=== PATIENT | male | born 1950 | race Caucasian/White ===

== ENCOUNTER 2020-04-19 01:22 | Emergency (ER) | payer MEDICARE, SELFPAY ==
[2020-04-19 02:33] LABS: #Eosinphils 0.7 thou/uL (0.0-0.7); #Lymphocytes 1.6 thou/uL (1.20-3.40); #Monocytes 0.6 thou/uL (0.11-0.59); #Neutrophils 9.3 thou/uL (1.40-6.50); %Basophils 0.4 % (0.0-1.0); %Eosinophils 5.6 % (0.0-10.0); %Lymphocytes 12.7 % (21.0-51.0); %Monocytes 5.2 % (0.0-10.0); %Neutrophils 76.1 % (42.0-75.0); Hemoglobin 12.8 g/dL (14.0-18.0); Mean Corpuscular HGB CONC 31.6 g/dL (32.0-36.0); Mean Corpuscular Hemoglobin 26.2 pg (27.0-31.0); Mean Corpuscular Volume 83.1 fL (78.0-98.0); Mean Platelet Volume 8.3 fL (7.4-10.4); Platelet Count 162 thou/uL (130-400); RBC Distribution Width 12.6 % (11.5-14.5); Red Blood Cell (RBC) Count 4.86 mill/uL (4.70-6.10); White Blood Cell (WBC) Count 12.2 thou/uL (4.8-10.8)
[2020-04-19 02:45] LABS: Anion Gap 14 mmol/L (10-20); BUN (Urea Nitrogen) 22 mg/dL (8.4-25.7); Calc. Creatinine Clearance 0 mL/min (70-130); Calcium 9.1 mg/dL (7.8-10.44); Carbon Dioxide 30 mmol/L (23-31); Chloride 103 mmol/L (98-107); Estimated GFR-MDRD Greater than 90; Glucose 90 mg/dL (80-115); Potassium 4.7 mmol/L (3.5-5.1); Sodium 142 mmol/L (136-145)
[2020-04-19] MEDS ORDERED: Morphine 4 MG/ML VIAL ONE (04:12)
[2020-04-19] MEDS ORDERED: Morphine 2 MG/ML SYRINGE ONE (04:20)
--- NOTE | 2020-04-19 08:01 | CT ---
PRELIMINARY REPORT/[facility]/EMERGENCY AFTER HOURS PROCEDURE Receipt of this report by the clinical staff was confirmed with PATO HICKS MD by Barry Lee on Apr 19, 2020 04:12:00 CDT. Addendum electronically signed by Flores Lee on April 19, 2020 4:12:20 AM CDT PROCEDURE: CT Neck with Contrast . HISTORY: Abscess LEFT neck. TECHNIQUE: Computerized tomography of the soft tissue neck was performed with the administration of iodinated IV contrast with multiplanar reconstructions. COMPARISONS: None . FINDINGS: Visualized intracranial contents are unremarkable. Moderate mucosal thickening visualized maxillary sinuses with air-fluid level on the RIGHT. Visualiz ed mastoid air cells on the LEFT are opacified. 6.0 x 3.5 cm LEFT parapharyngeal inhomogeneously enhancing mass or lymphadenopathy with extension int o the retropharyngeal soft tissues at the level of the nasal and oropharynx. Displacement of the airway to the RIGHT midline with mild compression. There could be involvement of the LEFT palatine a nd bilateral nasal pharyngeal tonsils. Epiglottis is unremarkable. Larynx and visualized trachea and esophagus show no significant abnormality. Lung apices are clear. 1.7 cm inhomogeneous RIGHT thyroid nodule. Bilateral submandibular and RIGHT parotid are unremarkabl e. Inferior portion of the LEFT parotid gland appears involved with large inhomogeneously enhancing mass that extends from the inferior portion to involve all the LEFT neck extending down to the supraclavicular region and measures 5.6 x 8.6 x 11.3 cm in size and suspicious for neoplasm or lymphadenopathy. Lymphadenopathy deep to the sternocleidomastoid involving the RIGHT neck. Submandibular and supracla vicular lymphadenopathy on the LEFT. Moderate atherosclerosis both internal carotid arteries proximally. Possible encasement on the LEFT of the internal carotid artery proximally by lymphadenopathy or neoplasm. No acute bony abnormality. IMPRESSION: Large mass and/or lymphadenopathy involving LEFT and RIGHT neck greatest on the LEFT as described abo ve consistent with neoplasm. There may be involvement of the LEFT palatine tonsil and bilateral nasal pharyngeal tonsils with tumo r. Some displacement of the airway in the oropharynx to the RIGHT without critical compression. RIGHT thyroid nodule. Bilateral maxillary sinusitis. ELECTRONICALLY SIGNED BY: Nikhil Rodriguez MD Apr 19, 2020 4:10:12 AM CDT This report is intended for review by the ordering physician only, in accordance of law. If you recei ve this report in error, please call [facility] at [phone]. FINAL REPORT Final report by Dr. Mehta Emergency after-hours study CT neck with contrast: 04/19/2020 3:26 AM HISTORY: 69-year-old male with left neck mass presents with pain and drainage after biopsy a few weeks ago. FINDINGS: No major disagreement with preliminary report by [facility]. IMPRESSION: 1) Huge confluent very necrotic malignant neoplastic tumor mass inseparable from tail of superficial lobe of left parotid gland superiorly, down to left supraclavicular region. This is probably a conglomeration of matted malignant metastatic lymphadenopathy involving left levels 2, 3, 4, and 5. 2) Mass consistent with malignant neoplastic tumor, probably the primary, involving left palatine ton tiffany, adenoids, crossing midline to involve right upper retropharyngeal birgit region, narrowing the nasopharyngeal airway. 3) Evidence for left vocal cord paralysis. Transcribed Date/Time: 04/19/2020 8:39 AM
[2020-04-19] MEDS ORDERED: Iopamidol 370 76% 100 ML VIAL ONE (09:00)
== END 2020-04-19 05:00 | disposition home or self-care (01) ==
LOC: NAV ERS 01:22
DX: C76.0 Malignant neoplasm of head, face and neck (principal); L76.22 Postprocedural hemorrhage of skin and subcutaneous tissue following other procedure; E11.40 Type 2 diabetes mellitus with diabetic neuropathy, unspecified; F41.9 Anxiety disorder, unspecified; F17.220 Nicotine dependence, chewing tobacco, uncomplicated; Z79.899 Other long term (current) drug therapy; Z79.4 Long term (current) use of insulin
CPT/HCPCS: 70491; 80048; 85025; 96374; J2270; Q9967